=== PATIENT | female | born 1985 | race Caucasian/White ===

== ENCOUNTER 2016-02-26 17:46 | Emergency (ER) | payer OTHER ==
[2016-02-26 18:01] VITALS: BP 127/84; PULSE 89; RESP 17; TEMP 97.4
== END 2016-02-26 18:22 | disposition home or self-care (01) ==
LOC: EC 17:46
DX: Z02.83 Encounter for blood-alcohol and blood-drug test (principal)
CPT/HCPCS: 99281

== ENCOUNTER 2016-08-06 13:02 | Emergency (ER) | payer OTHER ==
[2016-08-06 13:16] VITALS: RESP 16; TEMP 97.3
[2016-08-06] MEDS ORDERED: SODIUM CHLORIDE 0.9% 1,000 ML IV STA (13:19)
[2016-08-06] MEDS ORDERED: LORazepam 2 MG/ML SYRINGE IV STA (13:19)
[2016-08-06] MEDS ORDERED: ONDANSETRON 4 MG/2 ML VIAL IVP STA (13:19)
--- NOTE | 2016-08-06 13:21 | ED ---
Seizure HPI - General Chief Complaint: Seizure Stated Complaint: seizure Time Seen by Provider: 08/06/16 13:05 Source: patient, EMS, RN notes reviewed Mode of arrival: EMS Limitations: no limitations - History of Present Illness Initial Comments: 31-year-old female presents to the emergency department with a chief complaint of seizure. Patient has a history of seizures that are stress-induced. Patient also has a history of alcoholism and is currently at [facility] for rehab. Patient states she's been there since. Patient states that she was sitting on a bench and she had a seizure. Patient states he told her that she hit her head. Patient states she seen a neurologist for her seizures she did not take any medication for her seizures they are stress-induced. Patient states she does have a headache at this time. Patient also does admit to nausea and vomiting that she has had for the past 2 days. Patient states that she was concerned due to her symptoms so she thought that she should be evaluated.Patient denies any recent fever, chills, shortness of breath, chest pain, back pain, abdominal pain, nausea vomiting, numbness or tingling, dysuria or hematuria, constipation or diarrhea, visual changes, or any other current symptoms. - Related Data Home Medications Medication Instructions Recorded Confirmed Calcium/Magnesium/Zinc 1 tab PO TID PRN 08/06/16 08/06/16 [Cdgvoej-Uomthurvb-Kxcc Tablet] Ondansetron HCl [Zofran] 8 mg PO Q6H PRN 08/06/16 08/06/16 cloNIDine HCL [Catapres] 0.1 mg PO Q4H PRN 08/06/16 08/06/16 Allergies Allergy/AdvReac Type Severity Reaction Status Date / Time aspirin AdvReac Anaphylaxis Verified 08/06/16 13:47 Review of Systems ROS Statement: Those systems with pertinent positive or pertinent negative responses have been documented in the HPI. ROS Other: All systems not noted in ROS Statement are negative. Past Medical History Past Medical History: Seizure Disorder Additional Past Medical History / Comment(s): migranes, seizure 2011 with medication withdrawl, preclampsia with History of Any Multi-Drug Resistant Organisms: None Reported Past Surgical History: Section Additional Past Surgical History / Comment(s): c-sect x 2 Past Psychological History: Anxiety, Depression, Panic Disorder Smoking Status: Current every day smoker Past Alcohol Use History: Heavy Past Drug Use History: Cocaine, IV Drug Use, Marijuana General Exam - General Exam Comments Initial Comments: General: The patient is awake and alert, in no distress, and does not appear acutely ill. Eye: Pupils are equal, round and reactive to light, extra-ocular movements are intact; there is normal conjunctiva bilaterally. No signs of icterus. Ears, nose, mouth and throat: There are moist mucous membranes and no oral lesions. Neck: The neck is supple, there is no tenderness. Cardiovascular: There is a regular rate and rhythm. No murmur, rub or gallop is appreciated. Respiratory: Lungs are clear to auscultation, respirations are non-labored, breath sounds are equal. No wheezes, stridor, rales, or rhonchi. Gastrointestinal: Soft, non-distended, non-tender abdomen without masses or organomegaly noted. There is no rebound or guarding present. No CVA tenderness. Bowel sounds are unremarkable. Back: There is no tenderness to palpation in the midline. There is no obvious deformity. No rashes noted. Musculoskeletal: Normal ROM, no tenderness, There is no pedal edema. There is no calf tenderness or swelling. Sensation intact. Pulses equal bilaterally 2+. Neurological: CN II-XII intact, There are no obvious motor or sensory deficits. Coordination appears grossly intact. Speech is normal. Skin: Skin is warm and dry and no rashes or lesions are noted. Psychiatric: Cooperative, appropriate mood & affect, normal judgment. Limitations: no limitations Course Vital Signs 08/06/16 08/06/16 13:09 14:38 Temperature 97.3 F L Pulse Rate 65 55 L Respiratory 16 16 Rate Blood Pressure 167/84 141/84 O2 Sat by Pulse 100 100 Oximetry Medical Decision Making - Medical Decision Making 31-year-old female presents to the emergency department with chief complaint of seizure. Patient has history of seizures and states that they are stress- induced. At this time patient has had no seizure CT is negative as well as lab work. We discussed that we will send her back to rehab. We did discuss return for hours and follow-up. Patient stated that she understood all questions have been answered. She will be discharged. - Lab Data Result diagrams: 08/06/16 14:02 08/06/16 14:02 Lab Results 08/06/16 08/06/16 08/06/16 Range/Units 14:02 14:02 14:30 WBC 10.5 (3.8-10.6) k/uL RBC 4.90 (3.80-5.40) m/uL Hgb 14.7 (11.4-16.0) gm/dL Hct 44.2 (34.0-46.0) % MCV 90.1 (80.0-100.0) fL MCH 30.0 (25.0-35.0) pg MCHC 33.3 (31.0-37.0) g/dL RDW 13.7 (11.5-15.5) % Plt Count 300 (150-450) k/uL Neutrophils % 83 % Lymphocytes % 13 % Monocytes % 2 % Eosinophils % 1 % Basophils % 0 % Neutrophils # 8.7 H (1.3-7.7) k/uL Lymphocytes # 1.4 (1.0-4.8) k/uL Monocytes # 0.2 (0-1.0) k/uL Eosinophils # 0.1 (0-0.7) k/uL Basophils # 0.0 (0-0.2) k/uL Sodium 141 (137-145) mmol/L Potassium 4.0 (3.5-5.1) mmol/L Chloride 109 H (98-107) mmol/L Carbon Dioxide 21 L (22-30) mmol/L Anion Gap 11 mmol/L BUN 15 (7-17) mg/dL Creatinine 0.62 (0.52-1.04) mg/dL Est GFR (MDRD) Af Amer >60 (>60 ml/min/1.73 sqM) Est GFR (MDRD) Non-Af >60 (>60 ml/min/1.73 sqM) Glucose 110 H (74-99) mg/dL Calcium 9.4 (8.4-10.2) mg/dL Total Bilirubin 0.7 (0.2-1.3) mg/dL AST 21 (14-36) U/L ALT 20 (9-52) U/L Alkaline Phosphatase 84 (38-126) U/L Total Protein 7.5 (6.3-8.2) g/dL Albumin 4.3 (3.5-5.0) g/dL Amylase 70 (30-110) U/L Lipase 96 (23-300) U/L Urine Color Yellow Urine Appearance Cloudy H (Clear) Urine pH 8.5 H (5.0-8.0) Ur Specific [place] 1.019 (1.001-1.035) Urine Protein 1+ H (Negative) Urine Glucose (UA) Negative (Negative) Urine Ketones 1+ H (Negative) Urine Blood Negative (Negative) Urine Nitrite Negative (Negative) Urine Bilirubin Negative (Negative) Urine Urobilinogen <2.0 (<2.0) mg/dL Ur Leukocyte Esterase Small H (Negative) Urine WBC 10 H (0-5) /hpf Ur Squamous Epith Cells 5 H (0-4) /hpf Amorphous Sediment Occasional H (None) /hpf Urine Bacteria Rare H (None) /hpf Urine Mucus Occasional H (None) /hpf - Radiology Data Radiology results: report reviewed, image reviewed Disposition Clinical Impression: Seizure, Nausea & vomiting Disposition: HOME SELF-CARE Condition: Stable Instructions: Recurrent Seizures in Adults (ED) Additional Instructions: Please use medication as discussed. Please follow up with family doctor if symptoms have not improved over the next two days. Please return to the emergency room if your symptoms increase or worsen or for any other concerns. Referrals: Leonie Beckman MD [Primary Care Provider] - 1-2 days Time of Disposition: 15:20
[2016-08-06 14:09] LABS: Basophils % (A) 0 %; CH 30.7; CHCM 34.2; Eosinophils # (A) 0.1 k/uL (0-0.7); Eosinophils % (A) 1 %; HCT 44.2 % (34.0-46.0); HDW 2.14; HGB 14.7 gm/dL (11.4-16.0); Luc # (Auto) 0.11; Luc % (Auto) 1; Lymphocytes # (A) 1.4 k/uL (1.0-4.8); Lymphocytes % (A) 13 %; MCHC 33.3 g/dL (31.0-37.0); MCV 90.1 fL (80.0-100.0); Mean Platelet Volume 7.1; Monocytes # (A) 0.2 k/uL (0-1.0); Monocytes % (A) 2 %; Neutrophils # (A) 8.7 k/uL (1.3-7.7); Neutrophils % (A) 83 %; RDW 13.7 % (11.5-15.5); WBC 10.5 k/uL (3.8-10.6); WBC (Perox) 10.05
[2016-08-06 14:18] LABS: ALT 20 U/L (9-52); AST 21 U/L (14-36); Alkaline Phosphatase 84 U/L (38-126); Amylase 70 U/L (30-110); Anion Gap 11 mmol/L; Blood Urea Nitrogen 15 mg/dL (7-17); Calcium 9.4 mg/dL (8.4-10.2); Carbon Dioxide 21 mmol/L (22-30); Chloride 109 mmol/L (98-107); Glucose 110 mg/dL (74-99); Non-African American GFR(MDRD) >60 (>60 ml/min/1.73 sqM); Sodium 141 mmol/L (137-145); Total Bilirubin 0.7 mg/dL (0.2-1.3); Total Protein 7.5 g/dL (6.3-8.2)
--- NOTE | 2016-08-06 14:32 | CT ---
EXAMINATION TYPE: CT brain esthela wo con DATE OF EXAM: 08/06/2016 COMPARISON: 02/04/2014 HISTORY: Patient complains of headache, neck pain, and nausea post seizure today. Patient has histor y of prior seizures. CT DLP: 1506 mGycm, Automated exposure control for dose reduction was used. CONTRAST: None CT of the brain is performed utilizing 3 mm thick sections through the posterior fossa and 3 mm thick sections through the remaining calvarium. Study is performed within 24 hours of arrival to the hospital. No abnormal hyperdensity is present to suggest an acute intracranial hemorrhage. No mass lesion is evident. No acute infarcts are evident. Ventricles and sulci are appropriate for the patient age. Paranasal sinuses and mastoid air cells within the [id number] are clear. IMPRESSIONS: 1. Normal CT brain. CT cervical spine. COMPARISON: None CT of the cervical spine is performed in the axial plane at 2 mm thick sections. Reconstructed image s in the coronal, and sagittal plane are reviewed on the computer. No acute fractures are evident. Minimal kyphosis in the upper cervical spine which can be related to patient positioning or muscle sp asm. Disc heights are preserved. Vertebral body heights are preserved. No spinal canal stenosis is evident. No neural foraminal stenosis is evident. IMPRESSIONS: 1. Mild upper cervical spine kyphosis in otherwise normal cervical spine. 2. No acute osseous abnormality.
[2016-08-06 14:39] VITALS: BP 141/84
[2016-08-06 14:49] LABS: Amorphous Sediment,Urine Occasional /hpf; Appearance,Urine Cloudy (Clear); Bacteria,Urine Rare /hpf; Bilirubin,Urine Negative (Negative); Glucose,Urine (UA) Negative (Negative); Ketones,Urine 1+ (Negative); Leukocyte Esterase,Urine Small (Negative); Mucus,Urine Occasional /hpf; Nitrite,Urine Negative (Negative); PH, Urine 8.5 (5.0-8.0); Particle Count 11108; Protein,Urine 1+ (Negative); Specific Gravity,Urine 1.019 (1.001-1.035); Squamous Epithelial Cell,Urine 5 /hpf (0-4); UA Billing (MACRO vs. MICRO) MICRO; Urobilinogen,Urine <2.0 mg/dL (<2.0); WBC,Urine 10 /hpf (0-5)
--- NOTE | 2016-08-06 14:59 | XR ---
EXAMINATION TYPE: XR abdomen 2V DATE OF EXAM: 08/06/2016 HISTORY: Pain. Technique: 2 views of the abdomen are submitted. Comparison: None. Findings: There is no convincing evidence of pneumoperitoneum. The Bowel gas pattern is nonspecific and nonobstructive. No sizable air-fluid levels are seen. No mass effects are noted. No renal calcifications are identified. IMPRESSION: 1. Nonspecific nonobstructive bowel gas pattern
[2016-08-06 15:49] VITALS: PULSE 53
== END 2016-08-06 15:54 | disposition home or self-care (01) ==
LOC: EC 13:02
DX: G40.909 Epilepsy, unspecified, not intractable, without status epilepticus (principal); R11.2 Nausea with vomiting, unspecified; R51 Headache; F17.200 Nicotine dependence, unspecified, uncomplicated; Z88.6 Allergy status to analgesic agent
CPT/HCPCS: 36415; 80053; 82150; 83690; 85025; 81001; 87086; 87077; 87186; 74020; 72125; 70450; 99285; 96374; 96375; 96361; J2060; J2405

== ENCOUNTER 2017-05-03 12:17 | Emergency (ER) | payer OTHER ==
[2017-05-03] MEDS ORDERED: SODIUM CHLORIDE 0.9% 2,000 ML IV STA (12:40)
[2017-05-03 13:03] LABS: Basophils % (A) 0 %; Eosinophils # (A) 0.2 k/uL (0-0.7); Eosinophils % (A) 3 %; HCT 37.8 % (34.0-46.0); HGB 12.9 gm/dL (11.4-16.0); Lymphocytes # (A) 1.5 k/uL (1.0-4.8); Lymphocytes % (A) 24 %; MCH 30.3 pg (25.0-35.0); MCHC 34.1 g/dL (31.0-37.0); MCV 88.8 fL (80.0-100.0); Monocytes # (A) 0.4 k/uL (0-1.0); Monocytes % (A) 7 %; Neutrophils # (A) 3.9 k/uL (1.3-7.7); Neutrophils % (A) 63 %; Platelet Count 245 k/uL (150-450); RBC 4.25 m/uL (3.80-5.40); RDW 13.4 % (11.5-15.5); WBC 6.2 k/uL (3.8-10.6)
[2017-05-03 13:15] LABS: ALT 336 U/L (9-52); AST 286 U/L (14-36); Acetaminophen <10.0 ug/mL; Albumin 3.3 g/dL (3.5-5.0); Alcohol <10 mg/dL; Alkaline Phosphatase 99 U/L (38-126); Anion Gap 7 mmol/L; Blood Urea Nitrogen 11 mg/dL (7-17); Calcium 8.9 mg/dL (8.4-10.2); Carbon Dioxide 28 mmol/L (22-30); Chloride 103 mmol/L (98-107); Glucose 97 mg/dL (74-99); Potassium 3.9 mmol/L (3.5-5.1); Salicylate <1.0 mg/dL; Sodium 138 mmol/L (137-145); Total Bilirubin 0.7 mg/dL (0.2-1.3)
[2017-05-03 13:45] LABS: Creatine Kinase 190 U/L (30-135)
[2017-05-03 13:50] LABS: Amphetamine Screen,Urine Not Detected (NotDetected); Benzodiazepines Screen,Urine Detected (NotDetected); Cocaine Screen,Urine Detected (NotDetected); Methadone Screen, Urine Not Detected (NotDetected); Opiate Screen,Urine Detected (NotDetected); Phencyclidine Screen,Urine Not Detected (NotDetected); Tricyclic Antidepressant,Urine Detected (NotDetected); Urn Cannabinoid Scrn Detected (NotDetected)
[2017-05-03 13:51] LABS: Barbiturate Screen,Urine Not Detected (NotDetected); Oxycodone Screen, Urine Not Detected (NotDetected)
[2017-05-03 13:57] LABS: Creatine Kinase MB 2.1 ng/mL (0.0-2.4); Troponin I <0.012 ng/mL (0.000-0.034)
--- NOTE | 2017-05-03 13:59 | XR ---
EXAMINATION TYPE: XR chest 2V DATE OF EXAM: 05/03/2017 COMPARISON: NONE HISTORY: Drug overdose, altered mental status TECHNIQUE: Frontal and lateral views of the chest are obtained. FINDINGS: Patient is rotated. I question some bronchial wall thickening. There is no pleural effusion or pneumothorax seen. The cardiac silhouette size is enlarged. There are overlying cardiac leads. The osseous structures are intact. Question some patchy density adjacent to the right heart border. IMPRESSION: Suspect cardiomegaly. Correlate for bronchitis, reactive airways disease, difficult to ex clude some early airspace disease right middle lobe, follow-up suggested.
--- NOTE | 2017-05-03 16:12 | ED ---
Overdose HPI - General Chief Complaint: Overdose Stated Complaint: overdose Time Seen by Provider: 05/03/17 12:22 Source: patient, EMS Mode of arrival: EMS Limitations: no limitations - History of Present Illness Initial Comments: Years old female comes in with the DrFidencio figueroa she said she is left some hearing 3M today she also took bunch of pills all those pills were her pills this gabapentin she said she took 2 of those she took some baclofen she took some Seroquel she said she take him according to the recommendation for physician she is quite concerned about the recent diagnosis of hepatitis she is sleepy close her eyes once she stopped talking to her she had is that she was also on his Xanax he took some Xanax as well. Eyes any headaches no chest pain no shortness of breath no abdominal pain no frequency urgency dysuria - Related Data Home Medications Medication Instructions Recorded Confirmed Baclofen [Lioresal] 10 mg PO HS 05/03/17 05/03/17 Gabapentin [Neurontin] 300 mg PO TID 05/03/17 05/03/17 Mirtazapine [Remeron] 15 mg PO HS 05/03/17 05/03/17 QUEtiapine [SEROquel] 50 mg PO HS 05/03/17 05/03/17 Previous Rx's Medication Instructions Recorded Amoxicillin/Potassium Clav 1 tab PO Q12HR #20 tab 05/03/17 [Augmentin 875-125 Tablet] Allergies Allergy/AdvReac Type Severity Reaction Status Date / Time aspirin Allergy Anaphylaxis Verified 05/03/17 12:58 Review of Systems ROS Statement: Those systems with pertinent positive or pertinent negative responses have been documented in the HPI. ROS Other: All systems not noted in ROS Statement are negative. Past Medical History Past Medical History: Seizure Disorder Additional Past Medical History / Comment(s): migranes, seizure 2011 with medication withdrawl, preclampsia with History of Any Multi-Drug Resistant Organisms: None Reported Past Surgical History: Section Additional Past Surgical History / Comment(s): c-sect x 2 Past Psychological History: Anxiety, Depression, Panic Disorder Smoking Status: Current every day smoker Past Alcohol Use History: Heavy Past Drug Use History: Cocaine, IV Drug Use, Marijuana General Exam - General Exam Comments Initial Comments: General: The patient is awake number looks sleepy, GCS is 15. Skin: Skin is warm and dry and no rashes or lesions are noted. Eye: Pupils are equal, round and reactive to light, extra-ocular movements are intact; there is normal conjunctiva bilaterally. Ears, nose, mouth and throat: There are moist mucous membranes and no oral lesions. Neck: The neck is supple, there is no tenderness or JVD. Cardiovascular: There is a regular rate and rhythm. No murmur, rub or gallop is appreciated. Respiratory: To auscultation bilateral, no wheezing no rhonchi no distress respiratory breen noticed Gastrointestinal: Soft, non-distended, non-tender abdomen without masses or organomegaly noted. There is no rebound or guarding present. Bowel sounds are unremarkable. Back: There is no tenderness to palpation in the midline. There is no obvious deformity. Musculoskeletal: Normal ROM, no tenderness, There is no pedal edema. There is no calf tenderness or swelling. No cords were appreciated. Neurological: CN II-XII intact, Cranial nerves III through XII are intact. There are no obvious motor or sensory deficits. Coordination appears grossly intact. Speech is normal. Psychiatric: Cooperative, appropriate mood & affect, normal judgment. Limitations: no limitations Course Vital Signs 05/03/17 05/03/17 05/03/17 12:35 12:45 13:15 Temperature 98.2 F Pulse Rate 93 84 88 Respiratory 15 15 16 Rate Blood Pressure 135/64 131/67 131/63 O2 Sat by Pulse 95 90 L 95 Oximetry 05/03/17 15:04 Temperature Pulse Rate 81 Respiratory 16 Rate Blood Pressure 131/63 O2 Sat by Pulse 97 Oximetry Sinus reassessed, CBC is unremarkable AST and ALT are both elevated troponin is negative and test is negative urine drug tox is positive for benzos for cocaine, they are polysubstance abuse chest x-ray was reviewed, in case it is consistent with the early pneumonia considering her hepatitis C she was referred to hepatitis she be referred to Dr. Rincon/Jamar and she be gone home on a course of Augmentin 1 g twice a day for 10 days, she was educated and counseled about drugs and hepatitis C - Reevaluation(s) Reevaluation #1: He was observed in the ER for several hours, she walked with the RN, she is stable on her feet 05/03/17 17:11 Medical Decision Making - Lab Data Result diagrams: 05/03/17 12:40 05/03/17 12:40 Lab Results 05/03/17 05/03/17 05/03/17 Range/Units 12:40 12:40 12:40 WBC 6.2 (3.8-10.6) k/uL RBC 4.25 (3.80-5.40) m/uL Hgb 12.9 (11.4-16.0) gm/dL Hct 37.8 (34.0-46.0) % MCV 88.8 (80.0-100.0) fL MCH 30.3 (25.0-35.0) pg MCHC 34.1 (31.0-37.0) g/dL RDW 13.4 (11.5-15.5) % Plt Count 245 (150-450) k/uL Neutrophils % 63 % Lymphocytes % 24 % Monocytes % 7 % Eosinophils % 3 % Basophils % 0 % Neutrophils # 3.9 (1.3-7.7) k/uL Lymphocytes # 1.5 (1.0-4.8) k/uL Monocytes # 0.4 (0-1.0) k/uL Eosinophils # 0.2 (0-0.7) k/uL Basophils # 0.0 (0-0.2) k/uL Sodium 138 (137-145) mmol/L Potassium 3.9 (3.5-5.1) mmol/L Chloride 103 (98-107) mmol/L Carbon Dioxide 28 (22-30) mmol/L Anion Gap 7 mmol/L BUN 11 (7-17) mg/dL Creatinine 0.65 (0.52-1.04) mg/dL Est GFR (CKD-EPI)AfAm >90 (>60 ml/min/1.73 sqM) Est GFR (CKD-EPI)NonAf >90 (>60 ml/min/1.73 sqM) Glucose 97 (74-99) mg/dL Plasma Lactic Acid Rashawn (0.7-2.0) mmol/L Calcium 8.9 (8.4-10.2) mg/dL Total Bilirubin 0.7 (0.2-1.3) mg/dL AST 286 H (14-36) U/L ALT 336 H (9-52) U/L Alkaline Phosphatase 99 (38-126) U/L Total Creatine Kinase 190 H (30-135) U/L CK-MB (CK-2) 2.1 (0.0-2.4) ng/mL CK-MB (CK-2) Rel Index 1.1 Troponin I <0.012 (0.000-0.034) ng/mL Total Protein 6.0 L (6.3-8.2) g/dL Albumin 3.3 L (3.5-5.0) g/dL Urine HCG, Qual (Not Detectd) Salicylates <1.0 mg/dL Urine Opiates Screen (NotDetected) Ur Oxycodone Screen (NotDetected) Urine Methadone Screen (NotDetected) Ur Propoxyphene Screen (NotDetected) Acetaminophen <10.0 ug/mL Ur Barbiturates Screen (NotDetected) U Tricyclic Antidepress (NotDetected) Ur Phencyclidine Scrn (NotDetected) Ur Amphetamines Screen (NotDetected) U Methamphetamines Scrn (NotDetected) U Benzodiazepines Scrn (NotDetected) Urine Cocaine Screen (NotDetected) U Marijuana (THC) Screen (NotDetected) Serum Alcohol <10 mg/dL 05/03/17 05/03/17 05/03/17 Range/Units 12:40 13:16 13:16 WBC (3.8-10.6) k/uL RBC (3.80-5.40) m/uL Hgb (11.4-16.0) gm/dL Hct (34.0-46.0) % MCV (80.0-100.0) fL MCH (25.0-35.0) pg MCHC (31.0-37.0) g/dL RDW (11.5-15.5) % Plt Count (150-450) k/uL Neutrophils % % Lymphocytes % % Monocytes % % Eosinophils % % Basophils % % Neutrophils # (1.3-7.7) k/uL Lymphocytes # (1.0-4.8) k/uL Monocytes # (0-1.0) k/uL Eosinophils # (0-0.7) k/uL Basophils # (0-0.2) k/uL Sodium (137-145) mmol/L Potassium (3.5-5.1) mmol/L Chloride (98-107) mmol/L Carbon Dioxide (22-30) mmol/L Anion Gap mmol/L BUN (7-17) mg/dL Creatinine (0.52-1.04) mg/dL Est GFR (CKD-EPI)AfAm (>60 ml/min/1.73 sqM) Est GFR (CKD-EPI)NonAf (>60 ml/min/1.73 sqM) Glucose (74-99) mg/dL Plasma Lactic Acid Rashawn 0.6 L (0.7-2.0) mmol/L Calcium (8.4-10.2) mg/dL Total Bilirubin (0.2-1.3) mg/dL AST (14-36) U/L ALT (9-52) U/L Alkaline Phosphatase (38-126) U/L Total Creatine Kinase (30-135) U/L CK-MB (CK-2) (0.0-2.4) ng/mL CK-MB (CK-2) Rel Index Troponin I (0.000-0.034) ng/mL Total Protein (6.3-8.2) g/dL Albumin (3.5-5.0) g/dL Urine HCG, Qual Not Detected (Not Detectd) Salicylates mg/dL Urine Opiates Screen Detected H (NotDetected) Ur Oxycodone Screen Not Detected (NotDetected) Urine Methadone Screen Not Detected (NotDetected) Ur Propoxyphene Screen Not Detected (NotDetected) Acetaminophen ug/mL Ur Barbiturates Screen Not Detected (NotDetected) U Tricyclic Antidepress Detected H (NotDetected) Ur Phencyclidine Scrn Not Detected (NotDetected) Ur Amphetamines Screen Not Detected (NotDetected) U Methamphetamines Scrn Not Detected (NotDetected) U Benzodiazepines Scrn Detected H (NotDetected) Urine Cocaine Screen Detected H (NotDetected) U Marijuana (THC) Screen Detected H (NotDetected) Serum Alcohol mg/dL Disposition Clinical Impression: Polysubstance abuse, Hepatitis C, Elevated liver function tests, Pneumonia Disposition: HOME SELF-CARE Condition: Good Prescriptions: Amoxicillin/Potassium Clav [Augmentin 875-125 Tablet] 1 tab PO Q12HR #20 tab Referrals: Leonie Beckman MD [Primary Care Provider] - 1-2 days Catherine Person MD [STAFF PHYSICIAN] - 1-2 days
[2017-05-03 17:29] VITALS: BP 136/80; PULSE 86; RESP 18; TEMP 98.6
== END 2017-05-03 17:27 | disposition home or self-care (01) ==
LOC: EC 12:17
DX: F19.10 Other psychoactive substance abuse, uncomplicated (principal); B19.20 Unspecified viral hepatitis C without hepatic coma; J18.9 Pneumonia, unspecified organism; R94.5 Abnormal results of liver function studies; F41.9 Anxiety disorder, unspecified; F32.9 Major depressive disorder, single episode, unspecified; G40.909 Epilepsy, unspecified, not intractable, without status epilepticus; F17.200 Nicotine dependence, unspecified, uncomplicated; Z79.899 Other long term (current) drug therapy; Z88.6 Allergy status to analgesic agent
CPT/HCPCS: 36415; 71046; 80053; 80306; 80320; 81025; 82075; 82550; 82553; 83520; 83605; 84484; 85025; 93005; 96360; 96361; 99285

== ENCOUNTER 2017-12-06 22:02 | Emergency (ER) | payer OTHER ==
[2017-12-06 22:11] VITALS: BP 121/76; PULSE 107; RESP 16; TEMP 99
--- NOTE | 2017-12-06 22:48 | ED ---
Extremity Problem HPI - General Source: patient, RN notes reviewed, old records reviewed Mode of arrival: ambulatory Limitations: no limitations <Elsa Diaz - Last Filed: 12/07/17 03:10> <Aida Suarez - Last Filed: 12/07/17 06:22> - General Chief complaint: Extremity Problem,Nontraumatic Stated complaint: ring stuck/rt index finger Time Seen by Provider: 12/06/17 22:44 - History of Present Illness Initial comments: Patient is a 32-year-old female presents for interpretation plan of a ring stuck on the right index finger. She reports her finger swelled. She denies any trauma to the hand or finger. They tried attempts at home to get it removed including using metal clippers, ice, and soap and water. Patient reports that it was getting worse and more swollen at home. Patient is right- handed. Patient denies any recent fever, chills, shortness of breath, chest pain, back pain, abdominal pain, nausea vomiting, numbness or tingling, dysuria or hematuria, constipation or diarrhea, headaches or visual changes, or any other current symptoms (Elsa Diaz) - Related Data Home Medications Medication Instructions Recorded Confirmed Baclofen [Lioresal] 10 mg PO HS 05/03/17 05/03/17 Gabapentin [Neurontin] 300 mg PO TID 05/03/17 05/03/17 Mirtazapine [Remeron] 15 mg PO HS 05/03/17 05/03/17 QUEtiapine [SEROquel] 50 mg PO HS 05/03/17 05/03/17 Previous Rx's Medication Instructions Recorded Amoxicillin/Potassium Clav 1 tab PO Q12HR #20 tab 05/03/17 [Augmentin 875-125 Tablet] Allergies Allergy/AdvReac Type Severity Reaction Status Date / Time aspirin Allergy Anaphylaxis Verified 12/06/17 22:11 Review of Systems ROS Other: All systems not noted in ROS Statement are negative. <Elsa Diaz - Last Filed: 12/07/17 03:10> ROS Other: All systems not noted in ROS Statement are negative. <Aida Suarez - Last Filed: 12/07/17 06:22> ROS Statement: Those systems with pertinent positive or pertinent negative responses have been documented in the HPI. Past Medical History Past Medical History: Seizure Disorder Additional Past Medical History / Comment(s): migranes, seizure 2012 with medication withdrawl, preclampsia with History of Any Multi-Drug Resistant Organisms: None Reported Past Surgical History: Section Additional Past Surgical History / Comment(s): c-sect x 2 Past Psychological History: Anxiety, Depression, Panic Disorder Smoking Status: Current every day smoker Past Alcohol Use History: Heavy Past Drug Use History: Cocaine, IV Drug Use, Marijuana <Elsa Diaz - Last Filed: 12/07/17 03:10> General Exam Limitations: no limitations General appearance: alert, in no apparent distress Head exam: Present: atraumatic, normocephalic, normal inspection Eye exam: Present: normal appearance, PERRL, EOMI. Absent: scleral icterus, conjunctival injection, periorbital swelling ENT exam: Present: normal exam, mucous membranes moist Neck exam: Present: normal inspection. Absent: tenderness, meningismus, lymphadenopathy Respiratory exam: Present: normal lung sounds bilaterally Cardiovascular Exam: Present: regular rate, normal rhythm, normal heart sounds. Absent: systolic murmur, diastolic murmur, rubs, gallop, clicks Right Forearm Wrist exam: Present: normal inspection, full ROM Hand Wrist exam: Present: full ROM. Absent: normal inspection (Patient has swollen right index finger. Patient's ring was removed by the time I was examining the Patient. Removed by nurse supervisor steel division. Patient has normal capillary refill, full range of motion of the finger. No bruising or trauma.) Neuro motor exam: Present: wrist extension intact, thumb opposition intact, thumb IP flexion intact, thumb adduction intact, fingers 2-5 abduction intact Vascular: Present: normal capillary refill Back exam: Present: normal inspection Neurological exam: Present: alert, oriented X3, CN II-XII intact Psychiatric exam: Present: normal affect, normal mood Skin exam: Present: warm, dry, intact, normal color. Absent: rash <Elsa Diaz - Last Filed: 12/07/17 03:10> <Aida Suarez - Last Filed: 12/07/17 06:22> - General Exam Comments Initial Comments: 32-year-old female. Alert and oriented 3. Patient appears in no acute distress. (Elsa Diaz) Vital Signs 12/06/17 22:09 Temperature 99 F Pulse Rate 107 H Respiratory 16 Rate Blood Pressure 121/76 O2 Sat by Pulse 100 Oximetry Medical Decision Making <Elsa Diaz - Last Filed: 12/07/17 03:10> <Aida Suarez - Last Filed: 12/07/17 06:22> - Medical Decision Making 32-year-old female presents emergency department today with chief complaint of a ring stuck on the right index finger. She reports she multiple times at home to take it off, and the finger continue to swell. No trauma to the finger. Upon examination of the Patient she alreadyhad the ring removed by nurse supervisor steel division at with using a ring cutter. Patient reports that she has full range of motion and her hand feels much better at this time. There is no skin changes or lacerations to the finger. Patient advised to use anti-inflammatory medication and ice the finger for the next 1-2 days. Discussed return parameters. Patient agrees to treatment plan will comply. Return parameters were discussed. (Elsa Diaz) II was available for consultation in the emergency department. The history and physical exam were done by the Midlevel Provider. Medical decision making was done by the Midlevel Provider. The Midlevel Provider did not contact me for this patient's care. I was not directly involved in this patient's care. (Aida Suarez) Disposition Is patient prescribed a controlled substance at d/c from ED?: No Time of Disposition: 22:46 <Elsa Diaz - Last Filed: 12/07/17 03:10> <Aida Suarez - Last Filed: 12/07/17 06:22> Clinical Impression: Ring avulsion Disposition: HOME SELF-CARE Condition: Good Instructions: Swollen Joint (ED) Additional Instructions: Motrin and tylenol for pain, Ice the finger. Return to ED if any alarming signs or symptoms occur. Referrals: None,Stated [Primary Care Provider] - 1-2 days
== END 2017-12-06 22:55 | disposition home or self-care (01) ==
LOC: EC 22:02
DX: S60.440A External constriction of right index finger, initial encounter (principal); F32.9 Major depressive disorder, single episode, unspecified; G40.909 Epilepsy, unspecified, not intractable, without status epilepticus; F17.200 Nicotine dependence, unspecified, uncomplicated; Z88.6 Allergy status to analgesic agent; Z79.899 Other long term (current) drug therapy; W49.04XA Ring or other jewelry causing external constriction, initial encounter; Y92.009 Unspecified place in unspecified non-institutional (private) residence as the place of occurrence of the external cause
CPT/HCPCS: 99283